=== PATIENT | male | born 1960 | race African-American/Black ===

== ENCOUNTER 2021-05-11 20:54 | Inpatient (IN) | payer SELFPAY ==
[~2021-05-11] VITALS: Ht 175.3 cm; Wt 73.9 kg
[2021-05-11] MEDS ORDERED: ACETAMINOPHEN 325MG TABLET PO STA (21:19)
[2021-05-11] MEDS ORDERED: ASPIRIN 325MG EC TABLET PO ONE (21:30)
[2021-05-11 21:42] LABS: BASOPHILS % 0.9 % (0.0-2.0); EOSINOPHILS % 2.8 % (0.0-5.0); HEMATOCRIT. 37.4 % (42.0-52.0); HEMOGLOBIN. 12.4 g/dL (14.0-18.0); MEAN CORPUSCULAR HEMOGLOBIN 27.9 pg (28.0-32.0); MEAN CORPUSCULAR VOLUME 84.6 fL (80.0-94.0); MEAN PLATELET VOLUME 8.9 fl (7.4-10.4); MONOCYTES % 10.4 % (2.0-8.0); NEUTROPHILS % 50.9 % (40.0-76.0); PLATELET 222 x1000/uL (130-400); RED BLOOD CELL COUNT 4.43 mill/uL (4.7-6.1)
[2021-05-11 21:44] LABS: CHLORIDE 107 mEq/L (98-107)
[2021-05-11 21:47] LABS: PROTHROMBIN TIME 10.8 sec (9.6-11.0)
[2021-05-12 06:00] VITALS: BP 140/93
[2021-05-12 08:00] VITALS: BP 126/69
[2021-05-12 10:08] VITALS: BP 126/69
[2021-05-12] MEDS ORDERED: ACETAMINOPHEN 325MG TABLET PO PRN (11:00)
[2021-05-12] MEDS ORDERED: ONDANSETRON HCL 4MG/2ML INJ IV PRN (11:00)
[2021-05-12] MEDS: ENOXAPARIN 40MG/0.4ML SYR SUBCUT SCH (11:11)
[2021-05-12] MEDS ORDERED: METOPROLOL SUCCINATE 50MG ER TABLET PO SCH (13:30)
[2021-05-12 17:00] VITALS: BP 127/93
[2021-05-12 17:59] LABS: *AMPHETAMINES SCREEN URINE NEGATIVE (NEGATIVE)
[2021-05-12 18:00] LABS: *BARBITURATES SCREEN URINE NEGATIVE (NEGATIVE); *BENZODIAZEPINES SCREEN URINE NEGATIVE (NEGATIVE); *COCAINE SCREEN URINE NEGATIVE (NEGATIVE); METHADONE URINE SCREEN NEGATIVE (NEGATIVE); OPIATES URINE SCREEN NEGATIVE (NEGATIVE); PHENCYCLIDINE URINE SCREEN NEGATIVE (NEGATIVE)
[2021-05-12 18:01] LABS: CANNABINOID URINE SCREEN PRESUMTIVE POSITIVE (NEGATIVE)
[2021-05-12] MEDS ORDERED: ATORVASTATIN CALCIUM 20MG TABLET PO SCH (21:00)
[2021-05-12] MEDS: METOPROLOL TARTRATE 25MG TABLET PO SCH (21:00)
[2021-05-13] VITALS: BP 137/79
[2021-05-13 04:00] VITALS: BP 154/78
[2021-05-13 08:00] VITALS: BP 128/76
[2021-05-13] MEDS: METOPROLOL TARTRATE 25MG TABLET PO SCH (08:35)
[2021-05-13] MEDS ORDERED: ASPIRIN 81MG TABLET PO SCH (09:00)
[2021-05-13] MEDS: ENOXAPARIN 40MG/0.4ML SYR SUBCUT SCH (11:39)
[2021-05-13 12:00] VITALS: BP 141/82
[2021-05-13] MEDS ORDERED: CLONIDINE 0.1MG TABLET PO PRN (13:45)
[2021-05-13] MEDS ORDERED: AMLODIPINE 2.5MG TABLET PO SCH (13:45)
[2021-05-13 14:02] VITALS: BP 141/82
[2021-05-13 16:00] VITALS: BP 126/81
== END 2021-05-13 23:00 | disposition home or self-care (01) | DRG 198 ==
LOC: ER 20:54 → 8WST 23:05 → ENRESERV 05-12 04:57
PROVIDERS: ADMIT Internal Medicine; ATTEND Internal Medicine
DX: R07.89 Other chest pain (principal); I25.10 Atherosclerotic heart disease of native coronary artery without angina pectoris; I27.20 Pulmonary hypertension, unspecified; F03.90 Unspecified dementia, unspecified severity, without behavioral disturbance, psychotic disturbance, mood disturbance, and anxiety; D64.9 Anemia, unspecified; E11.9 Type 2 diabetes mellitus without complications; E78.5 Hyperlipidemia, unspecified; F12.90 Cannabis use, unspecified, uncomplicated; F14.10 Cocaine abuse, uncomplicated; F17.210 Nicotine dependence, cigarettes, uncomplicated; F20.9 Schizophrenia, unspecified; I10 Essential (primary) hypertension; Z91.19 Patient's noncompliance with other medical treatment and regimen; Z95.5 Presence of coronary angioplasty implant and graft; Z71.6 Tobacco abuse counseling
CPT/HCPCS: 36415; 71045; 80053; 80305; 83880; 84484; 85025; 93005; 93306; 99285; J1650

== ENCOUNTER 2021-06-29 15:00 | Emergency (ER) | payer SELFPAY ==
[~2021-06-29] VITALS: Ht 182.9 cm; Wt 91.0 kg
[2021-06-29 15:09] VITALS: BP 153/94
== END 2021-06-29 17:16 | disposition left against medical advice (07) ==
LOC: ER 15:00
DX: Z53.21 Procedure and treatment not carried out due to patient leaving prior to being seen by health care provider (principal)

== ENCOUNTER 2021-07-17 12:29 | Inpatient (IN) | payer MEDICAID ==
[~2021-07-17] VITALS: Ht 182.9 cm; Wt 78.9 kg
[2021-07-17 14:45] LABS: BASOPHILS % 1.3 % (0.0-2.0); EOSINOPHILS % 1.9 % (0.0-5.0); HEMATOCRIT. 38.3 % (42.0-52.0); HEMOGLOBIN. 12.9 g/dL (14.0-18.0); LYMPHOCYTES % 23.1 % (20.0-50.0); MEAN CORPUSCULAR HEMOGLOBIN 28.2 pg (28.0-32.0); MEAN CORPUSCULAR VOLUME 83.7 fL (80.0-94.0); MONOCYTES % 8.8 % (2.0-8.0); NEUTROPHILS % 64.9 % (40.0-76.0); PLATELET 339 x1000/uL (130-400); RED BLOOD CELL COUNT 4.57 mill/uL (4.7-6.1); RED CELL DISTRIBUTION WIDTH 15.1 % (11.6-14.6)
[2021-07-17 14:45] LABS: CLARITY URINE CLEAR (CLEAR); COLOR URINE YELLOW (YELLOW); KETONES URINE NEGATIVE (NEGATIVE); LEUKOCYTE ESTERASE URINE NEGATIVE (NEGATIVE); NITRITE URINE NEGATIVE (NEGATIVE); OCCULT BLOOD URINE NEGATIVE (NEGATIVE); PH URINE 7.5 (4.5-8.0); PROTEIN URINE NEGATIVE (NEGATIVE); SPECIFIC GRAVITY URINE 1.008 (1.005-1.030); UROBILINOGEN URINE 0.2 E.U./dL (0.2-1.0)
[2021-07-17 14:49] LABS: CHLORIDE 106 mEq/L (98-107)
[2021-07-17 15:06] LABS: METHADONE URINE SCREEN NEGATIVE (NEGATIVE); OPIATES URINE SCREEN NEGATIVE (NEGATIVE); PHENCYCLIDINE URINE SCREEN NEGATIVE (NEGATIVE)
[2021-07-17 15:07] LABS: *AMPHETAMINES SCREEN URINE NEGATIVE (NEGATIVE); *BARBITURATES SCREEN URINE NEGATIVE (NEGATIVE); *BENZODIAZEPINES SCREEN URINE NEGATIVE (NEGATIVE); *COCAINE SCREEN URINE NEGATIVE (NEGATIVE); CANNABINOID URINE SCREEN NEGATIVE (NEGATIVE)
[2021-07-17] MEDS ORDERED: IOHEXOL-350 100 ML BOTTLE ONE (21:30)
[2021-07-18] MEDS ORDERED: ACETAMINOPHEN 325MG TABLET PO PRN (08:45)
[2021-07-18] MEDS ORDERED: ONDANSETRON HCL 4MG/2ML INJ IV PRN (08:45)
[2021-07-18] MEDS ORDERED: ASPIRIN 81MG TABLET PO SCH (09:00)
[2021-07-18] MEDS ORDERED: THIAMINE HCL 100MG TABLET PO SCH (09:00)
[2021-07-18 10:35] VITALS: BP 140/64
[2021-07-18 11:21] VITALS: BP 132/70
[2021-07-18 12:00] VITALS: BP 128/80
[2021-07-18 16:00] VITALS: BP 145/84
== END 2021-07-18 18:15 | disposition home or self-care (01) | DRG 203 ==
LOC: ER 12:29 → MICUSO 19:19 → 7EST 07-18 09:17
PROVIDERS: ADMIT Internal Medicine; ATTEND Internal Medicine
DX: M94.0 Chondrocostal junction syndrome [Tietze] (principal); D57.1 Sickle-cell disease without crisis; R07.9 Chest pain, unspecified; F10.10 Alcohol abuse, uncomplicated; F17.210 Nicotine dependence, cigarettes, uncomplicated; J44.9 Chronic obstructive pulmonary disease, unspecified; F20.9 Schizophrenia, unspecified; I10 Essential (primary) hypertension; Y90.9 Presence of alcohol in blood, level not specified; Z71.41 Alcohol abuse counseling and surveillance of alcoholic; Z71.6 Tobacco abuse counseling; Z88.0 Allergy status to penicillin; Z71.51 Drug abuse counseling and surveillance of drug abuser
CPT/HCPCS: 36415; 71045; 71275; 80053; 80305; 81003; 83880; 84484; 85025; 85379; 93005; 99285; Q9967